=== PATIENT | female | born 1980 | race Caucasian/White ===

== ENCOUNTER 2018-02-02 23:28 | Inpatient (IN) | payer BC ==
[2018-02-02] MEDS ORDERED: LACTATED RINGER'S 1,000 ML IV (23:54)
[2018-02-03] MEDS ORDERED: BUTORPHANOL 1 MG INJ IV
[2018-02-03] MEDS ORDERED: LIDOCAINE 1% (MPF) 30 ML INJ INJ
[2018-02-03] MEDS: LACTATED RINGER'S 1,000 ML IV* ×3 (00:24→20:00)
[2018-02-03 00:46] LABS: ADD MAN DIFF? NO
[2018-02-03 00:48] LABS: BASOPHILS % 0.3 % (0.0-2.0); EOSINOPHILS # 0.1 10^3/ul (0.0-0.5); EOSINOPHILS % 1.1 % (0.0-7.0); HEMATOCRIT 38.6 % (37.0-47.0); HEMOGLOBIN 12.6 g/dl (12.0-16.0); LYMPHOCYTES # 2.9 10^3/ul (0.8-2.9); LYMPHOCYTES % 22.8 % (15.0-51.0); MEAN CORPUSCULAR HGB CONC 32.6 g/dl (32.0-37.0); MEAN CORPUSCULAR VOLUME 88.7 fl (82.0-101.0); MONOCYTE # 0.7 10^3/ul (0.3-0.9); MONOCYTES % 5.4 % (0.0-11.0); NEUTROPHIL # 8.9 10^3/ul (1.6-7.5); NEUTROPHILS % 69.9 % (39.0-77.0); PLATELET COUNT 174 10^3/UL (140-415); RED BLOOD COUNT 4.35 10^6/ul (4.20-5.40); RED CELL DISTRIBUTION WIDTH 13.2 % (11.5-14.5)
[2018-02-03 00:48] LABS: WHITE BLOOD COUNT 12.8 10^3/ul (4.8-10.8)
[2018-02-03 01:11] LABS: INR 0.91; PROTIME 12.3 Sec (11.9-14.9)
[2018-02-03 01:12] LABS: PARTIAL THROMBOPLASTIN TIME 24.5 Sec (25.0-35.0)
[2018-02-03 01:47] LABS: HEPATITIS B SURFACE ANTIGEN NEGATIVE (NEGATIVE)
[2018-02-03] MEDS: MISOPROSTOL 25 MCG CAPSULE VAG ×2 (02:45→06:54)
[2018-02-03] MEDS: OXYTOCIN 30 UNITS/LR 500 ML IV ×4 (11:11→20:00)
[2018-02-03] MEDS ORDERED: FENTAnyl 2MCG/ML-ROPIV 0.2% 100 ML (11:53)
[2018-02-03] MEDS ORDERED: NALOXONE (0.4 MG/ML) INJ IV (12:00)
[2018-02-03] MEDS ORDERED: FENTAnyl 2MCG/ML-ROPIV 0.2% 100 ML BAG EPI (12:00)
[2018-02-03 15:27] LABS: RAPID PLASMA REAGIN NONREACTIVE (NR)
[2018-02-03] MEDS ORDERED: ONDANSETRON 4 MG INJ IV (17:30)
[2018-02-03] MEDS ORDERED: CARBOPROST 250 MCG INJ IM ×2 (17:30)
[2018-02-03] MEDS ORDERED: OXYTOCIN 30 UNITS/LR 500 ML IV ×2 (17:30)
[2018-02-03] MEDS ORDERED: METHYLERGONOVINE 0.2 MG INJ IM ×2 (17:30)
[2018-02-03] MEDS ORDERED: ACETAMINOPHEN 325 MG TAB PO (17:30)
[2018-02-03] MEDS ORDERED: HYDROCODONE/APAP (5/325) TAB PO (17:30)
[2018-02-03] MEDS ORDERED: MISOPROSTOL 200 MCG TAB PR ×2 (17:30)
[2018-02-03] MEDS ORDERED: NACL 0.9% 3 ML SYG IV (17:30)
[2018-02-03] MEDS: IBUPROFEN 600 MG TAB PO ×2 (19:13→23:55)
[2018-02-03] MEDS: HYDROCODONE/APAP (5/325) TAB PO (21:06)
[2018-02-03] MEDS: LANOLIN 7 GM TUBE TOP (21:08)
[2018-02-03] MEDS: BENZOCAINE 20% 56 ML SPRAY TOP (21:09)
[2018-02-03] MEDS: WITCH HAZEL/GLYCERIN PAD PR (21:10)
[2018-02-04] MEDS: LACTATED RINGER'S 1,000 ML IV* (01:00)
[2018-02-04] MEDS: HYDROCODONE/APAP (5/325) TAB PO ×4 (03:23→21:58)
[2018-02-04] MEDS: IBUPROFEN 600 MG TAB PO ×4 (05:53→23:52)
[2018-02-04 18:30] LABS: ADD MAN DIFF? NO
[2018-02-04 18:32] LABS: BASOPHILS % 0.3 % (0.0-2.0); EOSINOPHILS # 0.2 10^3/ul (0.0-0.5); EOSINOPHILS % 1.7 % (0.0-7.0); HEMATOCRIT 36.7 % (37.0-47.0); HEMOGLOBIN 12.1 g/dl (12.0-16.0); LYMPHOCYTES # 3.1 10^3/ul (0.8-2.9); LYMPHOCYTES % 30.6 % (15.0-51.0); MEAN CORPUSCULAR HEMOGLOBIN 29.5 pg (29.0-33.0); MEAN CORPUSCULAR VOLUME 89.5 fl (82.0-101.0); MEAN PLATELET VOLUME 11.5 fl (7.4-10.4); MONOCYTE # 0.5 10^3/ul (0.3-0.9); NEUTROPHIL # 6.3 10^3/ul (1.6-7.5); NEUTROPHILS % 61.9 % (39.0-77.0); PLATELET COUNT 160 10^3/UL (140-415); RED CELL DISTRIBUTION WIDTH 13.6 % (11.5-14.5)
[2018-02-04 18:32] LABS: WHITE BLOOD COUNT 10.1 10^3/ul (4.8-10.8)
[2018-02-05] MEDS: IBUPROFEN 600 MG TAB PO ×3 (05:28→17:09)
[2018-02-05] MEDS: HYDROCODONE/APAP (5/325) TAB PO (09:38)
[2018-02-05] MEDS: LANOLIN 7 GM TUBE TOP (09:39)
[2018-02-05] MEDS: SENNA/DOCUSATE NA (8.6MG/50MG) TAB PO (11:08)
== END 2018-02-05 18:25 | disposition home or self-care (01) | DRG 775 ==
LOC: PP1 02-03 19:55 → L-D 23:28
PROVIDERS: Obstetrics & Gynecology
PROC: 10E0XZZ Delivery of Products of Conception, External Approach (ICD-10-PCS; principal; 2018-02-03)
PROC: 3E033VJ Introduction of Other Hormone into Peripheral Vein, Percutaneous Approach (ICD-10-PCS; 2018-02-03)
DX: O69.81X0 Labor and delivery complicated by cord around neck, without compression, not applicable or unspecified (principal); Z3A.39 39 weeks gestation of pregnancy; Z37.0 Single live birth
CPT/HCPCS: 62319; 85025; 85610; 85730; 86592; 86850; 86900; 86901; 87340